=== PATIENT | female | born 1980 | race Caucasian/White ===

== ENCOUNTER 2018-11-13 16:45 | Emergency (ER) | payer MEDICAID ==
[~2018-11-13] VITALS: Ht 152.4 cm; Wt 65.8 kg
[~2018-11-13 16:45] MED LIST: CEPH-443 PO; NAPR-985 PO
[2018-11-13 16:51] VITALS: Ht 152.4 cm; Wt 65.8 kg
[2018-11-13] MEDS ORDERED: KETOROLAC 15 MG INJ IV STA (17:25)
[2018-11-13] MEDS ORDERED: ONDANSETRON 4 MG INJ IV STA (17:25)
[2018-11-13] MEDS ORDERED: SOD CHLORIDE 0.9% 1,000 ML IV STA (17:25)
[2018-11-13] MEDS ORDERED: FAMOTIDINE 20 MG INJ IV STA (17:25)
[2018-11-13] MEDS ORDERED: SOD CHLORIDE 0.9% 100 ML ONE (19:23)
[2018-11-13] MEDS ORDERED: IOHEXOL 300MG/ML 150 ML BTL ONE (19:23)
[2018-11-13 21:01] VITALS: BP 111/66; PULSE 69; RESP 16
--- NOTE | 2018-11-15 05:32 | ERD ---
ER Documentation Chief Complaint Chief Complaint abdominal pain and back pain x 1 year HPI 38-year-old female presents emergency department complaining of intermittent abdominal pain for the past year but worse over the past several days. Pain is moderate to severe. She took [id number] medication with some relief. She denies any nausea, vomiting, diarrhea, or other symptoms at this time. ROS All systems reviewed and are negative except as per history of present illness. Medications Home Meds Active Scripts Naproxen* (Naprosyn*) 500 Mg Tablet, 500 MG PO BID PRN for PAIN AND/OR INFLAMMATION, #30 TAB Prov:GRETCHEN CEBALLOS PA-C 11/13/18 Cephalexin* (Keflex*) 500 Mg Capsule, 500 MG PO QID for 7 Days, CAP Prov:GRETCHEN CEBALLOS PA-C 11/13/18 Allergies Allergies: Coded Allergies: No Known Allergy (Unverified , 11/13/18) PMhx/Soc Medical and Surgical Hx: pt denies Medical Hx, pt denies Surgical Hx Hx Alcohol Use: No Hx Substance Use: No Hx Tobacco Use: No Smoking Status: Never smoker Physical Exam Vitals Vital Signs Date Temp Pulse Resp B/P (MAP) Pulse Ox O2 O2 Flow FiO2 Time Delivery Rate 11/13/18 98.2 69 16 111/66 97 Room Air 21:01 (81) 11/13/18 99.0 86 16 132/78 99 16:51 (96) Physical Exam Const: No acute distress Head: Atraumatic Eyes: Normal Conjunctiva ENT: Normal External Ears, Nose and Mouth. Neck: Full range of motion. No meningismus. Resp: Clear to auscultation bilaterally Cardio: Regular rate and rhythm, no murmurs Abd: Soft, diffuse abdominal tenderness palpation without rebound or guarding , non distended. Normal bowel sounds Skin: No petechiae or rashes Back: No midline or flank tenderness Ext: No cyanosis, or edema Neur: Awake and alert Psych: Normal Mood and Affect Result Diagram: 11/13/18 1735 11/13/18 1735 Results 24 hrs Laboratory Tests Test 11/13/18 17:35 11/13/18 17:36 11/13/18 17:43 White Blood Count 7.1 10^3/ul Red Blood Count 4.40 10^6/ul Hemoglobin 12.8 g/dl Hematocrit 38.7 % Mean Corpuscular Volume 88.0 fl Mean Corpuscular Hemoglobin 29.1 pg Mean Corpuscular 33.1 g/dl Hemoglobin Concent Red Cell Distribution Width 12.6 % Platelet Count 284 10^3/UL Mean Platelet Volume 9.4 fl Immature Granulocytes % 0.300 % Neutrophils % 58.3 % Lymphocytes % 30.9 % Monocytes % 7.2 % Eosinophils % 2.7 % Basophils % 0.6 % Nucleated Red Blood Cells % 0.0 /100WBC Immature Granulocytes # 0.020 10^3/ul Neutrophils # 4.2 10^3/ul Lymphocytes # 2.2 10^3/ul Monocytes # 0.5 10^3/ul Eosinophils # 0.2 10^3/ul Basophils # 0.0 10^3/ul Nucleated Red Blood Cells # 0.0 10^3/ul Prothrombin Time 12.9 Sec Prothrombin Time Ratio 1.0 INR International 0.96 Normalized Ratio Activated Partial Thromboplast 25.8 Sec Time Sodium Level 142 mmol/L Potassium Level 3.6 mmol/L Chloride Level 105 mmol/L Carbon Dioxide Level 27 mmol/L Anion Gap 10 Blood Urea Nitrogen 6 mg/dl Creatinine 0.51 mg/dl Est Glomerular Filtrat > 60 mL/min Rate mL/min Glucose Level 106 mg/dl Calcium Level 9.4 mg/dl Total Bilirubin 0.4 mg/dl Direct Bilirubin 0.00 mg/dl Indirect Bilirubin 0.4 mg/dl Aspartate Amino 29 IU/L Transf (AST/SGOT) Alanine 35 IU/L Aminotransferase (ALT/SGPT) Alkaline Phosphatase 76 IU/L Total Protein 7.5 g/dl Albumin 4.7 g/dl Globulin 2.80 g/dl Albumin/Globulin Ratio 1.67 Lipase 123 U/L Urine Color YELLOW Urine Clarity SLIGHTLY CLOUDY Urine pH 6.0 Urine Specific Sarah Ann 1.013 Urine Ketones NEGATIVE mg/dL Urine Nitrite NEGATIVE mg/dL Urine Bilirubin NEGATIVE mg/dL Urine Urobilinogen NEGATIVE mg/dL Urine Leukocyte Esterase 2+ Ben/ul Urine Microscopic RBC 1 /HPF Urine Microscopic WBC 9 /HPF Urine Squamous Epithelial Cells FEW /HPF Urine Bacteria FEW /HPF Urine Hemoglobin NEGATIVE mg/dL Urine Glucose NEGATIVE mg/dL Urine Total Protein NEGATIVE mg/dl POC Beta HCG, Qualitative NEGATIVE Current Medications Medications Dose Sig/Mikey Start Time Status Last (Trade) Ordered Route PRN Stop Time Admin Dose Reason Admin Sodium 1,000 ml @ Q1H STAT 11/13/18 DC 11/13/18 Chloride 1,000 mls/hr IV 17:25 17:48 11/13/18 18:24 Ondansetron 4 mg ONCE STAT 11/13/18 DC 11/13/18 HCl (Zofran IV 17:25 17:48 Inj) 11/13/18 17:27 Famotidine 20 mg ONCE STAT 11/13/18 DC 11/13/18 (Pepcid Iv) IV 17:25 17:48 11/13/18 17:27 Ketorolac 15 mg ONCE STAT 11/13/18 DC 11/13/18 Tromethamine IV 17:25 17:48 (Toradol) 11/13/18 17:27 Sodium 100 ml @ ud STK-MED 11/13/18 DC Chloride ONCE .ROUTE 19:23 11/13/18 19:24 Iohexol 150 ml STK-MED 11/13/18 DC (Omnipaque ONCE .ROUTE 19:23 300mg/ ml) 11/13/18 19:24 [place] [id number] Radiology Main Line: [phone] DIAGNOSTIC IMAGING REPORT Patient: HAYLEY RUCKER : 1980 Age: 38 Sex: F MR #: [id number] DOS: 11/13/18 1725 Ordering MD: GRETCHEN CEBALLOS PA-C Location: E Room/Bed: PROCEDURE: CT Abdomen and Pelvis with contrast. CLINICAL INDICATION: Abdominal pain TECHNIQUE: CT scan of the abdomen and pelvis with contrast was performed on a multi-detector high-resolution CT scanner. The patient was scanned following the intravenous administration of 90 cc of Omnipaque-300. Coronal and sagittal reformatted images were obtained from the axial source images. Images were reviewed on a high-resolution PACS workstation. The total exam CTDI equals 7.89 mGy and the total exam DLP equals 445.03 mGy-cm. One or more the following dose reduction techniques were utilized: Automated exposure control, adjustment of the mA and / or kV according to patient's size, or use of iterative reconstruction technique. DICOM images are available. COMPARISON: None available FINDINGS: The lung bases are clear. No pneumoperitoneum is seen. Minimal hepatic s teatosis. No abnormalities seen in the gallbladder, spleen, pancreas, adrenals or kidneys. No abdominal aortic aneurysm is seen. No biliary dilatation is seen. The stomach is not distended. No abnormalities seen in the bladder. No definite abnormality of the uterus or adnexal regions seen on CT. Trace free fluid in right anterior mid pelvis. No abnormalities seen in the colon. There is an unremarkable appendix. No dilated small bowel loops are seen. No enlarged lymph nodes are seen in the abdomen or pelvis. Small scattered likely bone islands. Minimal curvature lumbar spine with convexity to the left. IMPRESSION: Minimal hepatic steatosis. Trace free fluid in right anterior mid pelvis which may be physiologic. Please see above. RPTAT: HJES .Slick Joshua MD, MD Date Time Electronically viewed and signed by .Slick Joshua MD, MD on 11/13/2018 20:41 .S/ CC: GRETCHEN CEBALLOS PA-C [phone] Procedures/MDM 38-year-old female presents to the emergency department complaining of abdominal pain. Based off of history and physical examination, further work-up was indicated. Patient was administered IV Toradol, Zofran, Pepcid with improvement of her symptoms. CBC: no e/o of systemic infection or severe anemia CMP: no e/o severe acidosis, alkalosis, renal failure, diabetic ketoacidosis, liver disease Lipase: no e/o pancreatitis PT/INR: normal coagulation Urine: 2+ leukocyte esterase consistent with urinary tract infection. CT abdomen and pelvis: No significant acute abnormalities. Full report interpreted by the radiologist may be viewed above. Medical decision making: Symptoms likely secondary to urinary tract infection. Much lower suspicion for acute surgical abdomen or other emergent process. Patient's gastrointestinal symptoms have stabilized while in the department. No evidence of severe dehydration, sepsis, or surgical abdomen. Extensive discussion with family and patient that occult disease cannot be ruled out. 8 hour recheck for repeat abdominal exam is planned. Departure Diagnosis: Primary Impression: UTI (urinary tract infection) Additional Impression: Hepatic steatosis Condition: Fair Patient Instructions: Understanding Urinary Tract Infections (UTIs) [facility] Usted se zepeda hecho un examen mdico de control que le indica que no est en zane condicin que requiera tratamiento urgente en el Departamento de Emergencia. Un estudio ms profundo y el tratamiento de rodrigez condicin pueden esperar sin ningn riesgo hasta que usted sea atendida/o en el consultorio de rodrigez mdico o zane clnica. Es responsabilidad suya arreglar zane jeaneth para el seguimiento del ulisses. MANEJO DE CONDICIONES NO URGENTES EN EL FUTURO 1) Si usted tiene un mdico de atencin primaria: Usted debera llamar a rodrigez mdico de atencin primaria antes de venir al departamento de emergencia. Despus de las horas de consultorio, rodrigez doctor o rodrigez asociado/a est disponible por telfono. El mdico o enfermero de tom en el servicio telefnico puede asesorarle por shagufta medio para atender el problema, o ulisses contrario se puede programar zane jeaneth. 2) Si usted no tiene un mdico de atencin primaria: Llame al mdico o clnica de referencia que aparece abajo jean marie las horas de consultorio para hacer zane jeaneth para que le vean. CLINICAS: [facility] [phone] [facility] [phone] [facility] [phone] [facility]. [facility] [phone] [facility]. [facility] [phone] [id number] [facility]. [phone] Additional Instructions: Llame al doctor MAANA y ralf zane JEANETH PARA DENTRO DE 1-2 BAY.Dgale a la sec retaria que nosotros le instruimos hacer esta jeaneth.Avise o llame si rodrigez condicin se empeora antes de la jeaneth. Regresa aqui si peor o no mejor. GRETCHEN CEBALLOS PA-C Nov 15, 2018 05:32
== END 2018-11-13 21:01 | disposition home or self-care (01) ==
LOC: FTE 16:45
DX: N39.0 Urinary tract infection, site not specified (principal); K76.0 Fatty (change of) liver, not elsewhere classified
CPT/HCPCS: 36415; 74177; 80053; 81001; 81025; 83690; 85025; 85610; 85730; 96374; 96375; J1885; J2405; J7030; Q9967; Z7502; Z7610